=== PATIENT | male | born 1995 ===

== ENCOUNTER 2017-12-11 23:54 | Emergency (ER) | payer SELFPAY ==
[2017-12-12 00:05] VITALS: TEMP 98.1; O2SAT 99
[2017-12-12] MEDS ORDERED: Tetanus/Diphtheria Toxoids 0.5 ml Syringe IM ONE ×2 (00:24→00:55)
[2017-12-12] MEDS ORDERED: Bacitracin 500 Units/gm Oint Foilpak UD ONE (01:03)
--- NOTE | 2017-12-12 01:18 | C.PDOC ---
History Of Present Illness 22 year old male is brought to the ED by family member for evaluation after he sustained an injury [employer]. Patient admits to having a few alcoholic beverage. As he sat on a reclining chair, patient lost balance, fell backwards, and sustained a laceration to the back of his head. As per relative who witnessed the fall, patient did not appear to lose consciousness and has not had episodes of vomiting. Time Seen by Provider: 12/12/17 00:09 Chief Complaint (Nursing): Abnormal Skin Integrity History Per: Patient, Family History/Exam Limitations: no limitations Onset/Duration Of Symptoms: Hrs Current Symptoms Are (Timing): Still Present Location Of Injury: Posterior: Head Additional History Per: Patient, Family Past Medical History Reviewed: Historical Data, Nursing Documentation, Vital Signs Vital Signs: Last Vital Signs Temp 98.1 F 12/12/17 01:28 Pulse 83 12/12/17 01:28 Resp 16 12/12/17 01:28 BP 116/70 12/12/17 01:28 Pulse Ox 99 12/12/17 04:23 - Medical History PMH: No Chronic Diseases Surgical History: No Surg Hx Family History: States: Unknown Family Hx - Social History Hx Alcohol Use: Yes Hx Substance Use: No Review Of Systems Gastrointestinal: Negative for: Vomiting Skin: Positive for: Other (laceration to back of head ) Neurological: Negative for: Other (LOC ) Physical Exam - Physical Exam Appears: Non-toxic, No Acute Distress Skin: Normal Color, Warm, Dry Head: Laceration (3.5cm, stellate, to mid-occipital scalp with localized hematoma ) Eye(s): bilateral: Normal Inspection, PERRL, EOMI Ear(s): Bilateral: Normal Oral Mucosa: Moist Neck: Normal ROM, Supple Chest: Symmetrical, No Deformity, No Tenderness Extremity: Normal ROM (to bilateral upper and lower extremities ), Capillary Refill (less than 2 seconds ) Neurological/Psych: Oriented x3, Normal Speech, Normal Cognition, Normal Motor, Normal Sensation ED Course And Treatment O2 Sat by Pulse Oximetry: 99 (on RA) Pulse Ox Interpretation: Normal Progress Note: Tetanus IM and Motrin PO administered. On re-examination, patient is resting comfortably, showing no signs of distress and is stable for discharge. Patient and family member are advised to f/u with patient PMD within 1-2 days for further evalaution and return for staple removal in 8-10 days. Laceration - Laceration Repair mid-occipital scalp Wound Length (In cm): 3.5 Description Of Wound: Stellate Wound Examination: Irrigated With Saline, No FB With Wound Exploration, No Tendon Injury With Wound Exploration Wound Closure: [place] (7) Wound Complexity: Simple Disposition - Disposition Referrals: [facility] [Outside] Disposition: HOME/ ROUTINE Disposition Time: 01:14 Condition: STABLE Additional Instructions: Staple removal in 8-10 days Follow up with PMD or clinic Return o ER if vomiting severe headache, weakness, grogginess Instructions: Laceration Repair With Patricio (DC), Minor Head Injury (DC) Forms: [employer] (C[place] Verdean) - Clinical Impression Clinical Impression: Laceration of scalp - PA / PATIENT CARRIER / Resident Statement MD/DO has reviewed & agrees with the documentation as recorded. - Scribe Statement The provider has reviewed the documentation as recorded by the Scribe (Vinita Rice) All medical record entries made by the Scribe were at my direction and personally dictated by me. I have reviewed the chart and agree that the record accurately reflects my personal performance of the history, physical exam, medical decision making, and the department course for this patient. I have also personally directed, reviewed, and agree with the discharge instructions and disposition.
[2017-12-12 01:29] VITALS: BP 116/70; PULSE 83; RESP 16
== END 2017-12-12 01:26 | disposition home or self-care (01) ==
LOC: C.ER 23:54
DX: S01.01XA Laceration without foreign body of scalp, initial encounter (principal); W07.XXXA Fall from chair, initial encounter; Z23 Encounter for immunization

== ENCOUNTER 2017-12-25 21:09 | Emergency (ER) | payer SELFPAY ==
[2017-12-25 21:32] VITALS: BP 115/68; PULSE 71; TEMP 98.6; O2SAT 99
--- NOTE | 2017-12-25 21:47 | C.PDOC ---
History Of Present Illness 22 y/o male presents to the ED for staple removal. Patient had a laceration to the posterior of the scalp. He reports that 7 graham were placed and that he was instructed to come in to have them removed. Patient has no medical complaints. PMD: none provided Time Seen by Provider: 12/25/17 21:36 Chief Complaint (Nursing): Suture/Staple Removal History Per: Patient History/Exam Limitations: no limitations Onset/Duration Of Symptoms: Days Ago Current Symptoms Are (Timing): Better Location Of Injury: Posterior: Head Recent travel outside of the [place]: No Past Medical History Reviewed: Historical Data, Nursing Documentation, Vital Signs Vital Signs: Last Vital Signs Temp 98.6 F 12/25/17 21:27 Pulse 71 12/25/17 21:27 Resp 16 12/25/17 21:27 BP 115/68 12/25/17 21:27 Pulse Ox 99 12/25/17 21:47 - Medical History PMH: No Chronic Diseases Surgical History: No Surg Hx Family History: States: Unknown Family Hx - Social History Hx Tobacco Use: No Hx Alcohol Use: Yes Hx Substance Use: No - Immunization History Hx Tetanus Toxoid Vaccination: Yes Hx Influenza Vaccination: No Hx Pneumococcal Vaccination: No Review Of Systems Except As Marked, All Systems Reviewed And Found Negative. Skin: Positive for: Other (staple removal from posterior scalp laceration) Physical Exam - Physical Exam Appears: Well, Non-toxic, No Acute Distress Skin: Normal Color, Warm, Dry, Other (7 graham were removed without any difficulty, so signs of infection) Head: Atraumatic Eye(s): bilateral: Normal Inspection, PERRL, EOMI Neurological/Psych: Oriented x3 ED Course And Treatment O2 Sat by Pulse Oximetry: 99 (RA) Pulse Ox Interpretation: Normal Medical Decision Making Medical Decision Making: Time: 21:27 Plan: * staple removal Scribe Attestation: Documented by Tia Garcia acting as a scribe for Lorena Corona PA-C. Scribe Attestation: All medical record entries made by the Scribe were at my direction and personally dictated by me. I have reviewed the chart and agree that the record accurately reflects my personal performance of the history, physical exam, medical decision making, and the department course for this patient. I have also personally directed, reviewed, and agree with the discharge instructions and disposition. Disposition - Disposition Disposition: HOME/ ROUTINE Disposition Time: 21:46 Condition: STABLE Additional Instructions: Follow up with your PMD as needed. Return to ED if feel worse. Instructions: Staple Removal Forms: [facility] (Greenlandic) Print Language: VIETNAMESE - Clinical Impression Clinical Impression: Removal of suture
[2017-12-25 21:52] VITALS: RESP 20
== END 2017-12-25 21:52 | disposition home or self-care (01) ==
LOC: C.ER 21:09
DX: S01.01XD Laceration without foreign body of scalp, subsequent encounter (principal)